=== PATIENT | male | born 1945 | race Caucasian/White ===

== ENCOUNTER → 2020-10-27 | Outpatient (CLI) | payer OTHER ==
[~2020-10-27] MED LIST: IOHEXOL 300 MG/ML 75 ML VIAL. IV ONE
[2020-10-27 08:24] LABS: CREATININE 1.2 mg/dL (0.7-1.3); GFR 59.2
--- NOTE | 2020-10-27 10:22 | RAD ---
EXAM: CT Abdomen and Pelvis with IV contrast CLINICAL HISTORY: Reason: / Spl. Instructions: / History: . COMPARISON: none TECHNIQUE: Helical CT of the abdomen and pelvis was performed following the administration of intrave nous contrast. Axial, coronal and sagittal reformatted images were generated. PQRS compliance statement - One or more of the following individualized dose reduction techniques wer e utilized for this study: 1. Automated exposure control 2. Adjustment of the mA and/or kV according to patient size 3. Use of iterative reconstruction technique FINDINGS: Lower Chest: 4 mm peripheral left lung base lung nodule (series 2 image 19) linear and patchy opacities lung bases likely scarring/atelectasis. Abdomen and Pelvis: Hepatic hypoattenuation likely fatty liver. Small gallstones are seen dependently within the gallblad anibal. Spleen is unremarkable. Small splenule is seen anteriorly. Adrenal glands are normal. Pancreas i s unremarkable. Small hiatal hernia. Symmetric nephrograms. No focal renal lesion. No hydronephrosis. No hydroureter. Bladder is unremarkable. Colonic diverticulosis without evidence for acute diverticulitis. No small or large bowel dilatation. No bowel obstruction. No abdominal or pelvic ascites. No abdominal or pelvic lymphadenopathy. Aortic calcifications are seen. Bones: Multilevel degenerative changes of spine are seen. No spondylolisthesis. Metallic density in the left iliac wing likely from prior penetrating injury or surgical change. No aggressive osseous lesion is seen. IMPRESSION: 1. 4 mm left lung base lung nodule. 2. No abdominal or pelvic lymphadenopathy. 3. No suspicious bony lesion. 4. Hepatic hypoattenuation likely fatty liver. Electronically signed by: Matias Abebe MD (10/27/2020 10:20 AM) [id number]
--- NOTE | 2020-10-28 08:50 | RAD ---
Nuclear medicine whole body bone scan History: Reason: PROSTATE CA / Spl. Instructions: / History: Comparison: CT abdomen and pelvis with contrast, same day. Technique: Examination performed after intravenous administration of 25 mCi Technetium 99m MDP. Imag es of the whole body were obtained in the anterior and posterior projections. Findings: Tracer projecting over the right hand/wrist is likely injection site related and may be contamination . Tracer uptake in the spine is moderately heterogeneous. There is increased tracer uptake of right f acial bones just inferior and lateral to the right orbit. Tracer uptake of ribs is symmetric. Tracer uptake of the pelvis is symmetric. Tracer in urinary bladder obscures the lower sacrum. There is inte nse periarticular tracer uptake of the medial compartment of the right knee. This uptake is probably degenerative. There is nonspecific intense tracer uptake of the left foot. Increased tracer uptake bi lateral acromioclavicular, glenohumeral, and sternoclavicular joints is likely degenerative. Tracer d istribution in the soft tissues appears physiologic. Impression: 1. There is increased tracer uptake lateral and inferior to the right orbit. Consider correlation wi th CT. 2. There is intense tracer uptake of the left foot, nonspecific. Consider correlation with radiograp hs. 3. Overall findings are not suspicious for bone metastases. Electronically signed by: Sushil Tran MD (10/28/2020 8:47 AM) [id number]
== END ==
LOC: NM 07:51
PROVIDERS: ATTEND Urology
DX: C61 Malignant neoplasm of prostate (principal); R91.1 Solitary pulmonary nodule; K44.9 Diaphragmatic hernia without obstruction or gangrene; K57.30 Diverticulosis of large intestine without perforation or abscess without bleeding
CPT/HCPCS: 36415; 74177; 78306; 82565; 84520; A9503; Q9967

== ENCOUNTER → 2021-05-13 | Outpatient (CLI) | payer MEDICARE, OTHER | LOC: LAB 13:05 | PROVIDERS: ATTEND Urology | DX: R97.20 Elevated prostate specific antigen [PSA] (principal) | CPT/HCPCS: 36415; 84153; G0103 ==

== ENCOUNTER → 2021-07-31 | Outpatient (CLI) | payer MEDICARE, OTHER | LOC: LAB 11:05 | PROVIDERS: ATTEND Urology | DX: C61 Malignant neoplasm of prostate (principal) | CPT/HCPCS: 36415; 84153; G0103 ==

== ENCOUNTER → 2021-10-28 | Outpatient (CLI) | payer MEDICARE, OTHER | LOC: LAB 13:29 | PROVIDERS: ATTEND Urology | DX: C61 Malignant neoplasm of prostate (principal) | CPT/HCPCS: G0103 ==